=== PATIENT | male | born 1965 | race Caucasian/White ===

== ENCOUNTER 2016-12-01 06:09 | Day surgery (SDC) | payer OTHER ==
[2016-12-01] VITALS (9 sets, daily range): BP systolic 113–139; BP diastolic 52–81; PULSE 59–74; RESP 18–20; TEMP 97.5–97.9; O2SAT 92–99
[~2016-12-01] VITALS: Ht 182.9 cm; Wt 130.5 kg
[~2016-12-01 06:09] MED LIST: BUME1TAB PO; CHOL5000 PO; CLIN150 PO; DOXA1 PO; FENO1TAB76 PO; GABA300C3 PO; HYDRA25 PO; IRON18TA2 PO; KLOR8TAB PO; LACT PO; LEVEMIR SQ; NIFE20CA PO; PLAV75TA PO; PRAV40 PO; TRAZ100; Z.0.OXYGEN INH; Z.0.WALKERFRONT
[2016-12-01] MEDS ORDERED: ATOR1TAB18 PO (06:41)
[2016-12-01] MEDS ORDERED: BUME1TAB PO (06:41)
[2016-12-01] MEDS ORDERED: CITA20TA4 PO (06:42)
[2016-12-01] MEDS ORDERED: DOXA1TAB34 PO (06:44)
[2016-12-01] MEDS ORDERED: CLOP75TA PO (06:44)
[2016-12-01] MEDS ORDERED: CHOL1CAP2 PO (06:45)
[2016-12-01] MEDS ORDERED: SODIUM CHLOR 0.9% 1000 ML IV SCH (06:45)
[2016-12-01] MEDS ORDERED: GABA300C5 PO (06:46)
[2016-12-01] MEDS ORDERED: FERR325T PO (06:46)
[2016-12-01] MEDS ORDERED: HYDR25TA35 PO (06:47)
[2016-12-01] MEDS ORDERED: LANTUS2P SQ (06:48)
[2016-12-01] MEDS ORDERED: LOSA50TA PO (06:48)
[2016-12-01] MEDS ORDERED: NIFE60TA58 PO (06:49)
[2016-12-01] MEDS ORDERED: TRAZ150T75 PO (06:50)
[2016-12-01] MEDS ORDERED: POTA8CAP PO (06:50)
[2016-12-01] MEDS ORDERED: NOVORP2 SQ (06:50)
[2016-12-01] MEDS ORDERED: ZETI10TA5 PO (06:51)
[2016-12-01] MEDS ORDERED: DOXY1CAP74 PO (06:52)
[2016-12-01] MEDS ORDERED: VITA1000 PO (06:54)
[2016-12-01] MEDS ORDERED: LIDOCAINE 1%/EPINEPHrine 1:100,000 SOLN 20 ML VIAL ONE (07:38)
[2016-12-01] MEDS ORDERED: MIDAZOLAM HCL 5 MG/5 ML VIAL ONE (08:06)
[2016-12-01] MEDS ORDERED: fentaNYL CITRATE 250 MCG/5 ML AMP ONE (08:06)
[2016-12-01] MEDS ORDERED: HYDROmorphone HCL 2 MG TAB PO PRN (09:00)
--- NOTE | 2016-12-01 09:21 | RADRPT ---
EXAM DATE/TIME: 12/01/2016 08:08 [facility] COMPARISON: No previous studies available for comparison. INDICATIONS : Renal failure. SEDATION TIME: 30 minutes BIOPSY SITE: Right MEDICATION(S): 1.) 2 mg midazolam (Versed) IV 2.) 100 mcg fentanyl (Sublimaze) IV DEVICE(S): 1.) 18 gauge BioPince needle MEDICAL HISTORY : Hypertension. Diabetes mellitus type 2. Congestive heart failure. SURGICAL HISTORY : None. ENCOUNTER: Initial ACUITY: 1 day PAIN SCORE: 0/10 LOCATION: Right A total of two core specimen(s) were obtained and sent to the laboratory for pathologic evaluation. PROCEDURE: 1. CT guided renal biopsy. 2. Conscious sedation with continuous EKG and oximetry monitoring. 3. EKG and oximetry remained stable throughout the procedure. Prior to the procedure informed consent was obtained. Any appropriate prior imaging studies were rev iewed. Using automated exposure control and adjustment of the mA and/or kV according to patient size, radiat ion dose was kept as low as reasonably achievable to obtain optimal diagnostic quality images. The site was prepped in a sterile fashion. Full sterile technique was used, including cap, mask, ro rile gloves and gown and a large sterile sheet. Hand hygiene and 2% chlorhexidine and/or betadine/al cohol prep was utilized per protocol for cutaneous antisepsis. The skin and subcutaneous tissues wer e infiltrated with local anesthetic solution. With CT guidance the lower pole the right kidney was localized. Biopsy was performed using the prescr ibed needle as above. Adequate hemostasis was obtained with compression at the puncture site. Follow-up CT scan reveals no hemorrhage or acute finding. The patient tolerated the procedure well and there were no complications. The patient was returned to the Radiology Outpatient Unit in stable condition. CONCLUSION: Uncomplicated CT guided biopsy of the right lower pole kidney. Brett Champagne MD on December 01, 2016 at 9:18 Board Certified Radiologist. This report was verified electronically.
== END 2016-12-01 13:35 | disposition home or self-care (01) ==
LOC: HRAD 06:09 → HRIP 06:34 → HRAD 13:35
PROVIDERS: ATTEND Internal Medicine Nephrology
DX: N19 Unspecified kidney failure (principal); I10 Essential (primary) hypertension; E11.9 Type 2 diabetes mellitus without complications; I50.9 Heart failure, unspecified; J44.9 Chronic obstructive pulmonary disease, unspecified; Z79.4 Long term (current) use of insulin
CPT/HCPCS: 50200; 77012; 88305; 88313; 88346; 88348; 88350; J2250; J3010; J7030

== ENCOUNTER → 2017-02-23 | Day surgery (SDC) | payer OTHER ==
[~2017-02-23] VITALS: Ht 182.9 cm; Wt 124.6 kg
[~2017-02-23] MED LIST changes: +ATOR1TAB18 PO; +BUPIVACAINE/EPINEPHRINE 0.5% PF 30 ML VIAL INFIL ONE; +CALC667C PO; +CHLORHEXIDINE GLUCONATE 2 % 1 PACK (2 CLOTHS) TOPICAL PRN; +CHOL1CAP2 PO; -CHOL5000 PO; +CITA20TA4 PO; -CLIN150 PO; +CLOP75TA PO; +DO NOT ADM ANY ANTICOAGULANT DRUGS PRN; -DOXA1 PO; +DOXA1TAB34 PO; -FENO1TAB76 PO; +FERR325C PO; +FISH1000 PO; -GABA300C3 PO; +GABA300C5 PO; +HEPARIN SODIUM - SQ 10,000 UNITS/ML VIAL OTHER ONE; +HUMALOG SQ; +HYDR-3800 PO; -HYDRA25 PO; +INSULIN HUMAN REGULAR 1,000 UNITS/10 ML VIAL SQ PRN; -IRON18TA2 PO; -KLOR8TAB PO; -LACT PO; +LACTATED RINGER'S 1000 ML IV PRN; +LANTUS2P SQ; -LEVEMIR SQ; +LOSA50TA PO; +METOPROLOL TARTRATE 25 MG TAB PO PRN; +MIDAZOLAM HCL 2 MG/2 ML VIAL ONE; +MULT1TAB46 PO; -NIFE20CA PO; +NIFE60TA58 PO; +OXYGENDME NAS.CANULA; -PLAV75TA PO; +POTA8CAP PO; +POVIDONE IODINE 5% (ANTISEPSIS KIT) 4 APPLICATIONS EACH NARE PRN; -PRAV40 PO; +PROPOFOL 200 MG/20 ML AMP IV ONE; +SODIUM CHLORID 0.9% 500 ML IV PRN; -TRAZ100; +TRAZ1TAB45 PO; +VITA10004 PO; +VITA2000 PO; +VITA500T83 PO; -Z.0.OXYGEN INH; -Z.0.WALKERFRONT; +ZETI10TA5 PO; +ceFAZolin 1,000 MG/NS 100 ML IV SCH
[2017-02-23 10:30] VITALS: BP 135/61; PULSE 68; RESP 18; TEMP 97.8; O2SAT 100
[2017-02-23 10:30] LABS: AUTOMATED NEUTROPHIL # 6.6 TH/MM3 (1.8-7.7); BASOPHIL # 0.1 TH/MM3 (0-0.2); BASOPHIL % 0.7 % (0.0-2.0); EOSINOPHIL # 0.1 TH/MM3 (0-0.4); EOSINOPHIL % 1.6 % (0.0-4.0); HEMATOCRIT 24.4 % (39.0-51.0); HEMO FLAGS DIFF FINAL; LYMPHOCYTE # 0.8 TH/MM3 (1.0-4.8); MEAN CELL VOLUME 85.6 FL (80.0-100.0); MEAN CORPUSCULAR HGB CONC 32.7 % (32.0-36.0); MONO % 8.9 % (0.0-8.0); NEUT % 78.8 % (16.0-70.0); PLATELET COUNT 221 TH/MM3 (150-450); RED BLOOD COUNT 2.85 MIL/MM3 (4.50-5.90); WHITE BLOOD COUNT 8.4 TH/MM3 (4.0-11.0)
[2017-02-23 10:40] LABS: BICARBONATE 26.7 MEQ/L (21.0-32.0); POTASSIUM 4.3 MEQ/L (3.5-5.1)
[2017-02-23 15:30] VITALS: BP 127/57; PULSE 66; RESP 18; TEMP 98.1; O2SAT 100
--- NOTE | 2017-02-23 17:53 | EKG ---
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
--- NOTE | 2017-03-11 10:19 | MP ---
cc: GREYSON MANCINI M.D. DATE OF SURGERY: 02/23/2017 PREOPERATIVE DIAGNOSIS: Chronic kidney disease with need for permanent hemodialysis access. POSTOPERATIVE DIAGNOSIS Chronic kidney disease with need for permanent hemodialysis access. OPERATIVE PROCEDURE Left radial cephalic arterial venous fistula creation. SURGEON Greyson Mancini MD. PLUG OVERWRAP MACHINE TENDER: GABY Brandon. ANESTHESIA Local MAC DESCRIPTION OF OPERATIVE PROCEDURE: With the patient in the supine position and under IV sedation, the left arm was prepped with Betadine and draped in a sterile fashion. The skin and subcutaneous tissue along the distal lateral volar forearm was infiltrated with 0.5% Marcaine with epinephrine. A vertical 3 cm incision was performed through which the cephalic vein and radial artery were circumferentially mobilized. The vein measured approximately 3 mm in maximal diameter. The artery was unusually small in caliber, with approximately 1.5 mm in maximal diameter and as such represented a suboptimal vessel . Nonetheless, the artery was success . The vein was ligated distally with 4-0 silk, transected proximal to the ligature and spatulated on end, . The radial artery occluded proximally and distally with Yasargil clip. surface. The Yasargil clips were removed, reestablishing pulsatile flow to the renal artery as well as . Strict hemostasis was assured. The incision closed with interrupted subcuticular 4-0 Monocryl. Steri-Strips and sterile dressing applied. No operative complication. The [facility] in stable condition, having tolerated the procedure well. Greyson Mancini MD JTS/HARPREET /5:35 PM /10:13 AM
== END | disposition home or self-care (01) ==
LOC: HSDC 09:30
PROVIDERS: ATTEND Surgery Vascular Surgery
DX: I13.2 Hypertensive heart and chronic kidney disease with heart failure and with stage 5 chronic kidney disease, or end stage renal disease (principal); E11.22 Type 2 diabetes mellitus with diabetic chronic kidney disease; N18.5 Chronic kidney disease, stage 5; I50.9 Heart failure, unspecified; E11.42 Type 2 diabetes mellitus with diabetic polyneuropathy; E78.00 Pure hypercholesterolemia, unspecified; Z86.73 Personal history of transient ischemic attack (TIA), and cerebral infarction without residual deficits; I44.0 Atrioventricular block, first degree; R94.31 Abnormal electrocardiogram [ECG] [EKG]; Z79.4 Long term (current) use of insulin
CPT/HCPCS: 01844; 36821; 80048; 82948; 85025; 93005; J0690; J1644; J2250; J7120

== ENCOUNTER 2017-05-18 12:49 | Day surgery (SDC) | payer OTHER ==
[~2017-05-18] VITALS: Ht 182.9 cm; Wt 120.1 kg
[~2017-05-18 12:49] MED LIST changes: -BUPIVACAINE/EPINEPHRINE 0.5% PF 30 ML VIAL INFIL ONE; -CHLORHEXIDINE GLUCONATE 2 % 1 PACK (2 CLOTHS) TOPICAL PRN; -DO NOT ADM ANY ANTICOAGULANT DRUGS PRN; -HEPARIN SODIUM - SQ 10,000 UNITS/ML VIAL OTHER ONE; -INSULIN HUMAN REGULAR 1,000 UNITS/10 ML VIAL SQ PRN; +IOHEXOL 350 MG/ML 50 ML BTL (for RAD DIAG) IVCONTRAST ONE; -LACTATED RINGER'S 1000 ML IV PRN; +LIDOCAINE HCL 1% PF 5 ML AMPULE OTHER ONE; -METOPROLOL TARTRATE 25 MG TAB PO PRN; +MIDAZOLAM HCL 2 MG/2 ML VIAL IV ONE; -MIDAZOLAM HCL 2 MG/2 ML VIAL ONE; -POVIDONE IODINE 5% (ANTISEPSIS KIT) 4 APPLICATIONS EACH NARE PRN; +SODIUM CHLORID 0.9% 500 ML INJ 500 ML IV ONE; -SODIUM CHLORID 0.9% 500 ML IV PRN; -ceFAZolin 1,000 MG/NS 100 ML IV SCH
[2017-05-18] MEDS ORDERED: HYDR-3799 PO (13:32)
[2017-05-18] MEDS ORDERED: CHOL1CAP2 PO (13:32)
[2017-05-18] MEDS ORDERED: METOPROLOL TARTRATE 25 MG TAB PO PRN (13:45)
[2017-05-18] MEDS ORDERED: POVIDONE IODINE 5% (ANTISEPSIS KIT) 4 APPLICATIONS EACH NARE PRN (13:45)
[2017-05-18] MEDS ORDERED: LACTATED RINGER'S 1000 ML IV PRN (13:45)
[2017-05-18] MEDS ORDERED: CHLORHEXIDINE GLUCONATE 2 % 1 PACK (2 CLOTHS) TOPICAL PRN (13:45)
[2017-05-18] MEDS ORDERED: SODIUM CHLORID 0.9% 500 ML IV PRN (13:45)
[2017-05-18] MEDS ORDERED: INSULIN HUMAN REGULAR 1,000 UNITS/10 ML VIAL SQ PRN (13:45)
[2017-05-18 13:54] LABS: AUTOMATED NEUTROPHIL # 5.7 TH/MM3 (1.8-7.7); BASOPHIL # 0.1 TH/MM3 (0-0.2); BASOPHIL % 0.9 % (0.0-2.0); EOSINOPHIL # 0.2 TH/MM3 (0-0.4); EOSINOPHIL % 2.8 % (0.0-4.0); HEMATOCRIT 24.2 % (39.0-51.0); HEMO FLAGS DIFF FINAL; LYMPH % 11.8 % (9.0-44.0); LYMPHOCYTE # 0.9 TH/MM3 (1.0-4.8); MEAN CORPUSCULAR HEMOGLOBIN 28.3 PG (27.0-34.0); MEAN CORPUSCULAR HGB CONC 32.6 % (32.0-36.0); MONO % 8.8 % (0.0-8.0); NEUT % 75.7 % (16.0-70.0); PLATELET COUNT 238 TH/MM3 (150-450); RED BLOOD COUNT 2.79 MIL/MM3 (4.50-5.90); RED CELL DISTRIBUTION WIDTH 14.8 % (11.6-17.2); WHITE BLOOD COUNT 7.5 TH/MM3 (4.0-11.0)
[2017-05-18] MEDS ORDERED: ceFAZolin 1,000 MG/NS 100 ML IV SCH ×2 (14:00)
[2017-05-18 14:02] LABS: APTT (PATIENT) 26.9 SEC (24.3-30.1); INTERNATIONAL NORMALIZED RATIO 1.1 RATIO; PROTHROMBIN TIME - PATIENT 11.9 SEC (9.8-11.6)
[2017-05-18 14:09] LABS: BICARBONATE 25.1 MEQ/L (21.0-32.0); POTASSIUM 4.7 MEQ/L (3.5-5.1)
[2017-05-18] MEDS ORDERED: NOVOLOGP2 SQ (14:13)
[2017-05-18] MEDS ORDERED: BUPIVACAINE/EPINEPHRINE 0.5% 50 ML VIAL ONE (16:28)
[2017-05-18] MEDS ORDERED: HEPARIN SODIUM - SQ 10,000 UNITS/ML VIAL ONE (16:29)
[2017-05-18] MEDS ORDERED: FAMOTIDINE 20 MG/2 ML VIAL ONE (17:01)
[2017-05-18] MEDS ORDERED: DO NOT ADM ANY ANTICOAGULANT DRUGS PRN (18:41)
[2017-05-18] MEDS ORDERED: ACETAMINOPHEN/HYDROcodone 325 MG/5 MG TAB PO PRN (19:00)
[2017-05-18] MEDS ORDERED: TYLETAB34 PO ×2 (19:09→19:16)
[2017-05-18 19:15] VITALS: TEMP 97.7
[2017-05-18 19:45] VITALS: BP 119/62; PULSE 55; RESP 14; O2SAT 94
--- NOTE | 2017-05-18 23:05 | MP ---
cc: GREYSON MANCINI DATE OF SURGERY: 05/18/2017 PREOPERATIVE DIAGNOSIS: Inadequately matured left radiocephalic AV fistula. POSTOPERATIVE DIAGNOSIS Inadequately matured left radiocephalic AV fistula. OPERATIVE PROCEDURE Contrast fistulogram followed by ligation of patent cephalic venous collaterals and transposition of arterialized cephalic vein. SURGEON: Shubham Mancini MD. COMMUNITY OUTREACH COORDINATOR: GABY Brandon. ANESTHESIA: Local MAC. DESCRIPTION OF OPERATIVE PROCEDURE: With the patient in the supine position and under IV sedation the left arm was prepped with Betadine and draped in a sterile fashion. One gram of Ancef was administered intravenously. Following a protocol time-out, the arterialized cephalic vein was cannulated with an 18-gauge butterfly needle immediately proximal to the arterial anastomosis. Diluted contrast was injected in conjunction with digital C-arm fluoroscopic imaging. This confirmed a widely patent arterialized cephalic vein. Several large venous collaterals were identified and marked on the skin surface with a skin marker. The skin and subcutaneous tissue along the distal arterialized cephalic vein was infiltrated with 0.5% Marcaine with epinephrine. A vertical 6 cm incision was performed. The identified large venous collaterals were individually ligated with 4-0 silk and divided. A superficial skin flap was then dissected laterally. The adipose tissue was reapproximated deep to the superficialized vein with continuous 4-0 Monocryl. The incision was closed with interrupted subcuticular 4-0 Monocryl, continuous subcuticular 5-0 Monocryl, reinforced with Steri-Strips and covered with sterile gauze. Instrument, needle and sponge count were correct x2. There were no operative complications. The patient returned to the recovery room in stable condition having tolerated the procedure well. Greyson Mancini MD JTS/HARPREET /6:45 PM /10:57 PM
--- NOTE | 2017-05-19 22:55 | RADRPT ---
EXAM DATE/TIME: 05/18/2017 17:53 [facility] COMPARISON: No previous studies available for comparison. INDICATIONS : Left arm angio runoff in the operating room. MEDICAL HISTORY : Hypertension. Diabetes mellitus type 2. Congestive heart failure SURGICAL HISTORY : None ENCOUNTER: Initial ACUITY: 1 day PAIN SCORE: Nonresponsive. Left forearm FLUORO TIME: 0.06 minutes PROCEDURE : Dr. Mancini performed intraoperative venography associated with left arm dialysis fistula surgery. A s june digital run was submitted for interpretation. This reveals a venous access catheter in a distal portion of the forearm cephalic vein and contrast injection showed flow up the forearm to visualize just past the elbow with patency of the cephalic and medial antecubital veins. There is also some col lateralization to the basilic system identified. CONCLUSION: Patent forearm venous structures. Brett Shahid MD on May 19, 2017 at 22:50 Board Certified Radiologist. This report was verified electronically.
== END 2017-05-18 19:50 | disposition home or self-care (01) ==
LOC: HSDC 12:49
PROVIDERS: ATTEND Surgery Vascular Surgery
DX: I77.0 Arteriovenous fistula, acquired (principal); I13.2 Hypertensive heart and chronic kidney disease with heart failure and with stage 5 chronic kidney disease, or end stage renal disease; I50.9 Heart failure, unspecified; N18.5 Chronic kidney disease, stage 5; I12.0 Hypertensive chronic kidney disease with stage 5 chronic kidney disease or end stage renal disease; E11.22 Type 2 diabetes mellitus with diabetic chronic kidney disease; E11.42 Type 2 diabetes mellitus with diabetic polyneuropathy; K31.9 Disease of stomach and duodenum, unspecified; K31.84 Gastroparesis; E11.43 Type 2 diabetes mellitus with diabetic autonomic (poly)neuropathy; N40.0 Benign prostatic hyperplasia without lower urinary tract symptoms; E78.00 Pure hypercholesterolemia, unspecified; Z86.73 Personal history of transient ischemic attack (TIA), and cerebral infarction without residual deficits
CPT/HCPCS: 01844; 36818; 75710; 80048; 85025; 85610; 85730; J0690; J1644; J2250; J3010; J7040; Q9967